=== PATIENT | female | born 1990 | race Caucasian/White ===

== ENCOUNTER → 2019-02-23 16:35 | Outpatient (CLI) | payer BC, OTHER, SELFPAY ==
[2019-02-23 11:15] VITALS: BMI 23.3
[2019-02-23 18:37] LABS: Chlamydia Trachomatis by PCR Negative (Negative); Neisserai gonorrhoeae by PCR Negative (Negative); Probe Check PASS; Sample Adequacy Control PASS; Specimen Processing Control PASS
[2019-03-02 19:27] LABS: HPV Reflexed? NOT INDICATED
== END ==
PROVIDERS: Obstetrics & Gynecology; Referring Provider Nurse Practitioner Women's Health; Visit Provider Nurse Practitioner Women's Health
DX: Z12.4 Encounter for screening for malignant neoplasm of cervix (principal); Z34.90 Encounter for supervision of normal pregnancy, unspecified, unspecified trimester
CPT/HCPCS: 87086; 87491; 87591; 88175; G0145

== ENCOUNTER → 2019-03-24 10:40 | Outpatient (CLI) | payer BC, OTHER, SELFPAY ==
[2019-03-24 10:24] VITALS: BMI 23.3
[2019-03-24 11:47] LABS: Absolute Lymphocyte Count 1.06 X10^3/uL (0.83-4.51); Basophil# 0.02 X10^3/uL; Basophil% 0.4 % (0-1); Eosinophil# 0.03 X10^3/uL; Eosinophils% 0.7 % (0-5); Hematocrit 38.8 % (37-47); Hemoglobin 13.1 g/dL (12.0-15.0); Lymphocyte # 1.06 X10^3/ul (4.0); Lymphocyte % 23.4 % (19-41); Mean Corp Hgb Conc 33.8 g/dL (32-36); Mean Corpuscular Hgb 29.4 pg (27.0-32.0); Mean Corpuscular Volume 87.2 fL (81-99); Mean Platelet Vol. 10.7 fl (6.2-12.0); Monocyte# 0.39 X10^3/uL; Monocyte% 8.6 % (0-10); NRBC Flagged by Analyzer 0 % (0-5); Neutrophil # 3.02 X10^3/uL (2.7-7.7); Neutrophil % 66.7 % (47-70); Platelet Count 204 K/mm3 (150-450); RBC Distribution Width CV 12.5 % (11.6-14.6); RBC Distribution Width SD 39.6 fl (35.1-43.9); Red Blood Count 4.45 M/mm3 (4.2-5.4); White Blood Count 4.5 K/mm3 (4.4-11.0)
[2019-03-24 12:49] LABS: HIV - WCH Non-Reactive (Nonreactive); Hepatitis B Surface Antigen Non-Reactive (Nonreactive); Rubella IgG 104.6 IU/mL
[2019-03-31 01:53] LABS: Rapid Plasmin Reagin (RPR) NONREACTIVE (NONREACTIVE)
== END ==
PROVIDERS: Obstetrics & Gynecology; Referring Provider Nurse Practitioner Women's Health; Visit Provider Nurse Practitioner Women's Health
DX: Z34.90 Encounter for supervision of normal pregnancy, unspecified, unspecified trimester (principal)
CPT/HCPCS: 36415; 85025; 86592; 86703; 86762; 86850; 86900; 86901; 87340

== ENCOUNTER → 2019-07-07 12:01 | Outpatient (CLI) | payer BC, OTHER, SELFPAY ==
[2019-07-07 11:55] VITALS: BMI 23.3
[2019-07-07 13:31] LABS: Absolute Lymphocyte Count 0.78 X10^3/uL (0.83-4.51); Absolute Neutrophil Count 4.7 X10^3/uL (2.0-7.7); Basophil# 0.02 X10^3/uL; Basophil% 0.3 % (0-1); Eosinophil# 0.04 X10^3/uL; Eosinophils% 0.7 % (0-5); Hematocrit 36.7 % (37-47); Hemoglobin 12.2 g/dL (12.0-15.0); Lymphocyte # 0.78 X10^3/ul (4.0); Lymphocyte % 13.2 % (19-41); Mean Corp Hgb Conc 33.2 g/dL (32-36); Mean Corpuscular Hgb 29.7 pg (27.0-32.0); Mean Corpuscular Volume 89.3 fL (81-99); Monocyte# 0.33 X10^3/uL; Monocyte% 5.6 % (0-10); NRBC Flagged by Analyzer 0 % (0-5); Neutrophil % 79.9 % (47-70); Platelet Count 170 K/mm3 (150-450); RBC Distribution Width CV 12.7 % (11.6-14.6); Red Blood Count 4.11 M/mm3 (4.2-5.4); White Blood Count 5.9 K/mm3 (4.4-11.0)
[2019-07-07 13:41] LABS: Glucose Challenge Gest 1H 50g 168 mg/dL (70-140)
== END ==
PROVIDERS: Referring Provider Nurse Practitioner Women's Health; Visit Provider Nurse Practitioner Women's Health
DX: Z34.02 Encounter for supervision of normal first pregnancy, second trimester (principal)
CPT/HCPCS: 36415; 82950; 85025

== ENCOUNTER → 2019-07-13 09:43 | Outpatient (CLI) | payer BC, OTHER, SELFPAY ==
[2019-07-07 11:55] VITALS: BMI 23.3
[2019-07-13 11:03] LABS: Glucose GTT-Gestation. Fasting 75 mg/dL (<105)
[2019-07-13 12:18] LABS: Glucose GTT-Gestational 1 Hr 192 mg/dL (<190)
[2019-07-13 13:06] LABS: Glucose GTT-Gestational 2 Hr 178 mg/dL (<165)
[2019-07-13 13:44] LABS: Glucose GTT-Gestational 3 Hr 104 L (<145)
== END ==
PROVIDERS: Referring Provider Obstetrics & Gynecology; Visit Provider Obstetrics & Gynecology
DX: O99.810 Abnormal glucose complicating pregnancy (principal); Z3A.00 Weeks of gestation of pregnancy not specified
CPT/HCPCS: 36415; 82951; 82952

== ENCOUNTER 2019-08-01 10:00 | Outpatient (RCR) | payer BC, OTHER, SELFPAY ==
[2019-07-07 11:55] VITALS: BMI 23.3
[2019-07-21 10:52] VITALS: BMI 23.3
== END 2019-08-02 23:59 ==
LOC: NS 10:00
PROVIDERS: Visit Provider Obstetrics & Gynecology
DX: Z71.3 Dietary counseling and surveillance (principal); O24.419 Gestational diabetes mellitus in pregnancy, unspecified control
CPT/HCPCS: 97802; G0108

== ENCOUNTER 2019-08-15 11:00 | Outpatient (RCR) | payer BC, OTHER, SELFPAY ==
[2019-07-21 10:52] VITALS: BMI 23.3
[2019-08-04 10:51] VITALS: BMI 26.9
== END 2019-08-15 23:59 | disposition home or self-care (01) ==
LOC: DC 11:00
PROVIDERS: Visit Provider Obstetrics & Gynecology
DX: Z71.3 Dietary counseling and surveillance (principal); O24.419 Gestational diabetes mellitus in pregnancy, unspecified control; Z3A.00 Weeks of gestation of pregnancy not specified

== ENCOUNTER → 2019-09-01 08:54 | Outpatient (CLI) | payer BC, OTHER, SELFPAY ==
[2019-08-04 10:51] VITALS: BMI 26.9
--- NOTE | 2019-09-01 08:56 | US_ITS ---
STUDY: SECOND AND THIRD TRIMESTER OBSTETRICAL ULTRASOUND REASON FOR EXAM: Female, 29 years old Growth -gestational DM LMP: December 20, 2018. TECHNIQUE: Transabdominal TECHNICAL QUALITY: Adequate. PRIOR ULTRASOUND: None. FINDINGS: There is a single intrauterine fetus. The fetus is in a cephalic presentation. There is demonstrated cardiac activity with a heart rate of 124 bpm. There is a normal amniotic fluid volume. The largest amniotic fluid pocket measures 4.3 cm. The amniotic fluid index (ARABELLA) is 9.8 cm. The placenta is anterior in location and is not low lying. There are Grade 2 placental changes. The cervix was not visualized due to the head positioning. The bilateral adnexal regions are normal. BIOMETRY: BPD: 8.2 cm: 33 weeks, 0 days HC: 30.1 cm: 33 weeks, 2 days AC: 32 cm: 35 weeks, 6 days FL: 6.7 centimeters: 34 weeks, 2 days CI: 76% FL/BPD: 81% FL/HC: FL/AC: 21% HC/AC: 0.94 age by current US: 34 weeks, 1 days. MASSIEL by current US: October 12, 2019. Estimated weight: 2556 grams, +/- 378 grams, 16 %. Age by LMP: 36 weeks, 3 days. MASSIEL by LMP: September 26, 2019. US/OB Limited With Biometrics IMPRESSION: Single live intrauterine gestation with a mean gestational age of 36 weeks and 3 days. The measurements obtained today fall within the lower limits of normal. Electronically Signed: Pete Reynolds, at 10:33 EDT , Service support ,
== END ==
PROVIDERS: Referring Provider Obstetrics & Gynecology; Visit Provider Obstetrics & Gynecology
DX: Z34.90 Encounter for supervision of normal pregnancy, unspecified, unspecified trimester (principal)
CPT/HCPCS: 76816

== ENCOUNTER → 2019-09-02 16:26 | Outpatient (CLI) | payer BC, OTHER, SELFPAY ==
[2019-09-02 11:53] VITALS: BMI 27.0
== END ==
PROVIDERS: Referring Provider Obstetrics & Gynecology; Visit Provider Obstetrics & Gynecology
DX: Z3A.36 36 weeks gestation of pregnancy (principal)
CPT/HCPCS: 87077; 87081; 87186

== ENCOUNTER 2019-09-16 11:50 | Inpatient (IN) | payer BC, OTHER, SELFPAY ==
[2019-09-16] VITALS (41 sets, daily range): BP systolic 102–141; BP diastolic 51–83; PULSE 56–131; TEMP 36.7–37.1; O2SAT 87–100; BMI 27.0
--- NOTE | 2019-09-16 12:44 | HP.PCM_ITS ---
- Problem List (1) Oligohydramnios Status: Acute (2) Gestational diabetes mellitus (GDM) affecting Status: Acute Comment: BS well controlled with diet. plan 36 week growth US delivery by 39-40 weeks. growth and ARABELLA WNL (3) Positive GBS test Status: Acute Comment: treat in labor (4) Status: Acute Qualifiers: Comment: carrier, ntd screening declined. NIPT low risk. 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 Required: No Is patient in pain?: No Allergies No Known Allergies Allergy (Verified 09/16/19 11:16) Medications vitamin#30 30 mg iron-10 mg iron-folic acid 1 mg-omg3 capsule cap PO cap 02/23/19 [History Confirmed 09/16/19] blood-glucose meter See Rx Instructions .ROUTE .MEDSUPPLY #1 ea 07/14/19 [Rx Confirmed 09/16/19] blood sugar diagnostic See Rx Instructions .ROUTE .COMPLEX #100 strip 08/10/19 [Rx Confirmed 09/16/19] Last Menstral Period: 12/20/18 Zika: Zika virus screening: Negative : No PFSH PFSH Surgical History History of wisdom tooth extraction, class II edentulism (Acute) Family History Unknown Heart disease Grandfather Cancer lung Social History (Updated 09/16/19 @ 11:[address] Zuleyma Mcdowell MD) Smoking Status: Never smoker alcohol intake: never substance use type: does not use caffeine: Yes what type of physical activity do you participate in: walking seatbelt use: always do you feel safe at home: Yes additional social history: [place] [employer] at [employer] Pregancy History 1 Elective abortions Hx Para Spontaneous abortions Hx # Term Pregnancies Ectopic pregnancies Hx # Pregnancies Multiple births # of living children HPI est ob 38w: Details: CAESAR FERRER is a 29 year old who presents for routine OB visit. She is a 1/0 at 38 weeks and 4 days and was noted to have a low fundal height today and therefore fluid level was checked and her ARABELLA was 5 cm. She has had well-controlled diabetes with diet alone during the but otherwise has not had any complications until today. OB Visit AMSSIEL Calculator Estimated Delivery Date Method Current WG Current Estimate 09/26/19 LMP (Uncertain) 38w 4d Expected Delivery Route/Plan Labor Preferences- labor support person: Pac[employer] pain management options preferred: epidural cut cord/dad catch: cord : yes PP control planned: condoms discussed possible routes of delivery and associated risks: [] special requests: [] Specific Issue/Plans flu vaccine: given tdap vaccine: tdap given rhogam: na LARC form signed: yes movement and labor precautions reviewed. Problem list reviewed and updated with the most current plan of care details and appropriate orders placed. Relevant counseling for the gestational age provided. Continue routine care and follow up unless otherwise noted in visit notes/problem list details Initial Weight: Not Recorded Date EGA Weight BP Urine Prot Glucose FHR FuHt Pres Dilation Effaced St Visit Note 03/24/19 13w 3d 111 lb 98/60 Negative Negative 154 0 Light spotting 3 days ago-none since. Cervix closed, no blood in vault. FHT found easily. 04/20/19 17w 2d 115 lb 6 oz 118/70 Negative Negative 148 NO VB, LOF. NO FM yet. Anatomy US scheduled. Declines AFP. Flu shot today 05/20/19 21w 4d 120 lb 124/88 Negative Negative 145 SM- no vb lof good fm no regular ctx 06/17/19 25w 4d 123 lb 130/70 140 SM- no vb lof good fm no regular ctx 07/07/19 28w 3d 127 lb 6 oz 126/70 Negative Negative 148 28 MH-Good FM. NO VB, LOF. 28 wk labs. Tdap next visit 07/21/19 30w 3d 126 lb 6 oz 110/58 Negative Negative 145 30 SM- no vb lof good fm no regular ctx 08/04/19 32w 3d 124 lb 6 oz 112/72 Negative Negative 130 32 SM- no vb lof good fm no regular ctx. bs well controlled. 09/02/19 36w 4d 125 lb 118/82 118/82 130 35 Cephalic 1.5 60 -2 SM - no vb lof good fm no regular ctx bs well controlled 09/09/19 37w 4d 126 lb 116/80 Negative Negative 115 35 Cephalic 1.5 60 -1 SM- no vb lof good fm no regular ctx SM- no vb lof good fm no regular ctx BS well controlled 09/16/19 38w 4d 125 lb 116/72 Negative Negative 120 34 Cephalic SM- no vb lof good fm no regular ctx Notes Visit Date: 09/16/19 ??No visit notes to display Visit Date: 09/09/19 ??No visit notes to display Visit Date: 09/02/19 ??No visit notes to display Visit Date: 08/04/19 ??No visit notes to display Visit Date: 07/21/19 ??No visit notes to display Visit Date: 07/07/19 ??No visit notes to display Visit Date: 06/17/19 ??No visit notes to display Visit Date: 05/20/19 ??No visit notes to display Visit Date: 04/20/19 ??No visit notes to display Visit Date: 03/24/19 ??Light spotting 3 days ago-none since. Cervix closed, no blood in vault. FHT found easily. ??Paula Dubon NP-C on 03/24/19 ACOG First Trimester First Trimester: Desire for , Alcohol, Tobacco Cessation, Illicit/Recreational Drug/Substance Use, Intimate Partner Violence, Barriers to care, Unstable Housing, Communication Barriers, Environmental/Work Hazards, Anticipated Course of Care, Toxoplasmosis Precations, Use of Any medications, Sexual activity, Exercise, Dental Care, Sauna/Hot tub use, Seat Belt use, Childbirth classes/Hospital facilities, , Travel, Indications for US and Screening for Aneuploidy Second Trimester Second Trimester: Signs and Symptoms of Labor, Selecting a care provider, Reproductive Life Planning, Care Planning, Tobacco Cessation, Depression/Anxiety and Intimate Partner Violence Third Trimester Third Trimester: Pain Management Plans, Labor support person(s), Immediate Larc, Movement Monitoring and Infant Feeding Yes ; discussed Trial of Labor after Counseling or discussed Circumcision preference Diagnostics Diagnostics Diagnostics Gest Glucose Tolerance MG/DL 07/13/19 Glucose 1 Hr 50 gm 168 mg/dL (70-140) H 07/07/19 Hgb 12.2 g/dL (12.0-15.0) 07/07/19 Hct 36.7 % (37-47) L 07/07/19 Details: HIV: Urine Culture: Sequential Screen: NIPT Screen: ROS Const Reports system reviewed and no additional complaints, except as docu Card Reports system reviewed and no additional complaints, except as docu Resp Reports system reviewed and no additional complaints, except as docu GI Reports system reviewed and no additional complaints, except as docu, Reports nausea Reports system reviewed and no additional complaints, except as docu Musc Reports system reviewed and no additional complaints, except as docu Exam Const General: cooperative, healthy appearing, comfortable, anxious HENMT Head: normal to inspection Nose: external nose normal Face and sinus: normal facial exam Neck Neck: normal visual inspection, full ROM, no lymphadenopathy Thyroid: thyroid normal Chest Chest palpation & inspection: normal inspection of the chest Resp Effort & Inspection: normal respiratory effort GI Inspection: normal to inspection Palpation: soft, other (gravid uterus) Other: infant vertex and appropriate size for gestational age Other: Cervical Exam: Extrem General: pedal edema Results POC Urinalysis 2 Dip (Clinic) Office Urine Glucose Negative Last Edit by Georgia Falk on 09/16/19 11:2 0 Office Urine Protein Negative Last Edit by Georgia Falk on 09/16/19 11:2 0 Assessment & Plan Problems 1. Positive GBS test B95.1 2. Gestational diabetes mellitus (GDM) affecting O24.419 3. 38 weeks gestation of Z3A.38 4. Encounter for supervision of normal first in second trimester Z34.02 29-year-old G1, P0 at 38 weeks 4 days with GDM A1 and oligohydramnios ARABELLA 5 cm today recommend induction of labor Patient presents IOL, plan management for , pitocin/AROM after Santoyo bulb. Pain management: [plans epidural]. GBS positive plan penicillin. Management of any complications: Diabetes plan routine testing throughout labor progress I have reviewed the [facility] and made any clinically relevant updates. Orders Orders: POC Urinalysis 2 Dip (Clinic) Today OB Limited With Biometrics Today O26.849 Coding Level of Care Code OB Routine Diagnoses Positive GBS test B95.1 Gestational diabetes mellitus (GDM) affecting O24.419 38 weeks gestation of Z3A.38 ??Weeks of gestation: 38 weeks Encounter for supervision of normal first in second trimester Z34.02 ??Normal : normal first ??Trimester: second trimester
[2019-09-16] MEDS: Lactated Ringers 1,000 ML 50 ML IV (13:14)
[2019-09-16 13:22] LABS: Absolute Neutrophil Count 3.5 X10^3/uL (2.0-7.7); Basophil# 0.01 X10^3/uL; Basophil% 0.2 % (0-1); Eosinophil# 0.01 X10^3/uL; Eosinophils% 0.2 % (0-5); Hematocrit 37.5 % (37-47); Hemoglobin 12.9 g/dL (12.0-15.0); Lymphocyte % 16.8 % (19-41); Mean Corp Hgb Conc 34.4 g/dL (32-36); Mean Corpuscular Hgb 29.9 pg (27.0-32.0); Mean Platelet Vol. 11.3 fl (6.2-12.0); Monocyte# 0.43 X10^3/uL; NRBC Flagged by Analyzer 0 % (0-5); Neutrophil # 3.51 X10^3/uL (2.7-7.7); Neutrophil % 73.6 % (47-70); Platelet Count 162 K/mm3 (150-450); RBC Distribution Width CV 12.9 % (11.6-14.6); RBC Distribution Width SD 40.3 fl (35.1-43.9); Red Blood Count 4.31 M/mm3 (4.2-5.4); White Blood Count 4.8 K/mm3 (4.4-11.0)
[2019-09-16] MEDS: 0.9% Normal Saline Single 100 ML IV.SOLN. IY (14:01)
[2019-09-16 14:11] LABS: Bedside Glucose 74 mg/dL (70-110)
[2019-09-16] MEDS: Oxytocin 30 units/NS 500 ml 30 UNITS/500 ML IV.SOLN IV (14:16)
[2019-09-16 19:26] LABS: Bedside Glucose 82 mg/dL (70-110)
--- NOTE | 2019-09-16 19:45 | NURSING ---
Pitocin was running on pump at 10 mL/hr upon arrival to this RN's shift. Increased Pitocin to 12 mL/hr at 1942.
[2019-09-16] MEDS: Lactated Ringers 500 ML 999 ML IV ×2 (20:31→23:21)
[2019-09-16] MEDS: fentaNYL-bupivacaine (epidural) 100 ML BAG EPIDURAL (21:41)
[2019-09-16 22:55] LABS: Bedside Glucose 83 mg/dL (70-110)
[2019-09-16] MEDS: Lactated Ringers 1,000 ML 200 ML IV (22:56)
[2019-09-17] VITALS (28 sets, daily range): BP systolic 92–130; BP diastolic 56–74; PULSE 52–149; RESP 16–18; TEMP 36.3–37.4; O2SAT 81–99
[2019-09-17 01:56] LABS: Bedside Glucose 84 mg/dL (70-110)
[2019-09-17] MEDS: Mag Hydrox/Al Hydrox/Simeth 30 ML UDC PO (02:35)
--- NOTE | 2019-09-17 03:01 | PCM.PN.BLA ---
Progress Note Patient comfortable with epidural. heart tone 120 moderate variability reactive early decelerations isolated variable. Overall category 1 tracing. Contractions every 2 to 4 minutes. IUPC placed. Continue Pitocin per protocol. 6 cm 90% and 0 station. STROKE Vital Signs/Narrative: Vital Signs Temp Pulse BP Pulse Ox 09/17/19 02:24 61 108/62 09/17/19 02:22 97.7 F L 99 09/17/19 01:42 98.0 F 63 113/60 99 09/17/19 00:33 98.2 F 64 103/59 L 97 09/16/19 23:53 68 102/51 L 97 09/16/19 23:52 98.3 F 09/16/19 23:13 61 135/58 H 09/16/19 23:12 98.0 F 09/16/19 23:07 59 L 98 09/16/19 23:02 76 98
[2019-09-17] MEDS: Lactated Ringers 1,000 ML 200 ML IV (03:27)
[2019-09-17 04:06] LABS: Bedside Glucose 82 mg/dL (70-110)
[2019-09-17] MEDS: fentaNYL-bupivacaine (epidural) 100 ML BAG EPIDURAL (04:09)
[2019-09-17 04:15] LABS: Bedside Glucose 80 mg/dL (70-110)
[2019-09-17] MEDS: Ondansetron 4 MG/2 ML Vial IV (04:33)
[2019-09-17 05:30] LABS: Bedside Glucose 74 mg/dL (70-110)
[2019-09-17 06:31] LABS: Bedside Glucose 71 mg/dL (70-110)
--- NOTE | 2019-09-17 07:47 | PCM.OPRPT ---
Problem List (1) Oligohydramnios Status: Acute (2) Gestational diabetes mellitus (GDM) affecting Status: Acute Comment: BS well controlled with diet. plan 36 week growth US delivery by 39-40 weeks. growth and ARABELLA WNL (3) Positive GBS test Status: Acute Comment: treat in labor (4) Status: Acute Qualifiers: Comment: carrier, ntd screening declined. NIPT low risk. anatomy normal (5) Supervision of normal Status: Acute Qualifiers: Comment: PRR MASSIEL 09/26/19, girl Charline Donney Vaginal Delivery Maternal Presentation: Medically Indicated Induction 38 week IOL Method of Induction: Pitocin, Snatoyo Bulb Amniotic Membrane Rupture Type: Spontaneous Amniotic Fluid Description: Clear Date of Procedure: 09/17/19 Pre-Operative Diagnosis: iol oligo gdma1 Post-Operative Diagnosis: same Surgery/ Procedure Performed: Spontaneous Vaginal Delivery Type of Anesthesia: Epidural Description of Procedure: Patient began pushing and delivered the head in the CLYDE presentation. The head was delivered atraumatically. The anterior and posterior shoulders delivered without complication followed by the rest of the and the infant was placed on the maternal abdomen. Delayed cord clamping was employed for approximately 60 seconds. Cord was clamped and cut and gentle traction was applied to the cord and the placenta delivered spontaneously immediately following it was noted to be intact with three-vessel cord. The perineum and vagina were inspected and noted to have a small first-degree perineal laceration that was repaired in the usual fashion with 3-0 Vicryl Rapide. EBL was 100 cc. Patient and tolerated delivery well. Presentation: CLYDE Placental Delivery Description: Spontaneous Placenta Disposition: [facility] Cord Vessel Description: 3 Vessels Cord Entanglement: None Estimated Blood Loss: 100 A gender: Female Episiotomy Description: None Laceration: Perineal Extension/lac, 1st degree Medications given after delivery: IV Pitocin Complications: None Multi Select Codes - Urinary/Genital Urinary/Genital CPT Codes: 88148 Vaginal Delivery [facility]
[2019-09-17] MEDS: Oxytocin 30 units/NS 500 ml 30 UNITS/500 ML IV.SOLN 334 UNITS IV (08:29)
[2019-09-17 10:10] LABS: Bedside Glucose 72 mg/dL (70-110)
[2019-09-17 10:10] LABS: Bedside Glucose 81 mg/dL (70-110)
[2019-09-17] MEDS: 0.9% Saline Lock 10 ML Syringe IV (11:00)
[2019-09-17] MEDS: Naproxen 250 MG Tablet 500 MG PO (15:55)
[2019-09-18] VITALS: BP 117/57; PULSE 70; RESP 16; TEMP 36.7
[2019-09-18] MEDS: Naproxen 250 MG Tablet 500 MG PO (00:01)
[2019-09-18 03:40] VITALS: BP 107/57; PULSE 59; RESP 16; TEMP 36.6
--- NOTE | 2019-09-18 07:37 | DCINST_ITS ---
Discharge Diet: No Restrictions Discharge Activity: Return to Normal Activity, May not drive while taking narcotic pain medications., May Shower May resume sexual activity in: 4-6 weeks Call your doctor if your incision/area has: Continuous Slow Oozing, Sudden Increased Bleeding, Increased Pain/ Swelling, Increased Redness, Foul Smelling Discharge Additional Instructions: If you experience any of the following, contact your healthcare provider. * Bleeding that soaks a pad every hour for 2 hours * Fever 100.4 or higher * Unrelieved incision or abdominal pain * Swelling, redness, discharge or bleeding from your incision or episiotomy site * Your incision begins to separate * Problems urinating (including inability to urinate or burning while urinating). * Visual changes * Severe headache * Flu-like symptoms * Pain or redness in one of both of your breasts * Pain, warmth, tenderness or swelling in your legs, especially the calf area * Frequent nausea and vomiting * Symptoms of depression or anxiety If you experience any of the following, call 911 or go to the nearest Emergency Room. * Chest pain * Problems breathing * Seizure activity * Partial or complete paralysis of a body part, slurred speech, weakness or drooping of the face, or a sudden inability to walk or hold your balance Allergies/Adverse Reactions: Allergies No Known Allergies Allergy (Verified 09/16/19 11:16) Medications to take at Discharge vitamin#30 30 mg iron-10 mg iron-folic acid 1 mg-omg3 capsule 1 cap PO DAILY cap 02/23/19 blood-glucose meter See Rx Instructions .ROUTE .MEDSUPPLY #1 ea 07/14/19 blood sugar diagnostic See Rx Instructions .ROUTE .COMPLEX #100 strip 08/10/19 Please Follow Up With: Zuleyma Mcdowell MD - [phone] When: Call to make an appointment with your doctor in 6 weeks. If you had elevated Blood pressure or 4th degree laceration you will need to be seen in 2 weeks. Test Results: Test results from this visit will be discussed in further detail at your follow- up appointment, if applicable.
--- NOTE | 2019-09-18 07:37 | PCM.PN.OB ---
Patient Problems: Active and Suspected Problems (Last Reviewed 09/16/19 @ 11:16 by Georgia Falk) Oligohydramnios (Acute) Subjective: doing well no complaints pain controlled no CP SOB N V ambulating well tolerating po lochia moderate, going well - Physical Exam Vitals/I&O's: Vital Signs Temp Pulse Resp BP Pulse Ox 97.8 F 59 L 16 107/57 L 97 09/18/19 03:40 09/18/19 03:40 09/18/19 03:40 09/18/19 03:40 09/17/19 08:46 Oxygen Delivery Method Room Air Weight: 125 lb Body Mass Index (BMI) 27.0 Intake and Output for Last 24 Hours 09/16/19 09/17/19 09/18/19 23:59 23:59 23:59 Intake Total 2410.89 / 2410.89 2618.30 / 2618.30 Output Total 200 / 200 400 / 400 Balance 2210.89 / 2210.89 2218.30 / 2218.30 Laboratory Results 09/17/19 07:23: POC Glucose 72 09/17/19 08:57: POC Glucose 81 Current Medications Acetaminophen (Tylenol) 1,000 mg PO Q8H PRN PRN PRN Reason: Pain Score 1-3/10 Bisacodyl (Dulcolax) 10 mg RECTAL UD PRN PRN Reason: If no BM Dibucaine (Dibucaine) 1 applic TOPICAL TID PRN PRN; Protocol PRN Reason: Discomfort Hydrocortisone (Hytone) 1 applic TOPICAL TID PRN PRN; Protocol PRN Reason: Discomfort Methylergonovine Maleate (Methergine) 0.2 mg IM X1 PRN PRN Reason: Excess bleeding/uterine atony Naproxen (Naprosyn) 500 mg PO Q8H PRN PRN PRN Reason: Pain Score 1-3/10 Last Admin: 09/18/19 00:01 Dose: 500 mg Documented by: Ondansetron HCl (Zofran) 4 mg IV Q4H PRN PRN PRN Reason: Nausea Oxycodone HCl (Oxyir) 5 - 10 mg PO Q4H PRN PRN PRN Reason: Pain Score 4-10/10 Senna/Docusate Sodium (Senokot-S, Myrtle-Colace) 1 - 2 tablet PO DAILY PRN PRN PRN Reason: Constipation Simethicone (Mylicon) 80 mg PO PCHS PRN PRN Reason: Indigestion/Stomach pain Sodium Chloride () 5 - 15 ml IV UD PRN PRN Reason: SALINE FLUSH Last Admin: 09/17/19 11:00 Dose: 10 ml Documented by: Medical Necessity - Tobacco Use Smoking Status: Never smoker Assessment/Plan All Active Problems (Last Reviewed 09/16/19 @ 11:16 by Georgia Falk) Oligohydramnios (Acute) Positive GBS test (Acute) Gestational diabetes mellitus (GDM) affecting (Acute) (Acute) Supervision of normal (Acute) Abnormal glucose affecting (Resolved) s/p PPD # 1 1. routine post delivery care 2. breast feeding- support given 3. rh positive 4. rubella immune gdma1- check FBS today
--- NOTE | 2019-09-18 07:37 | PCM.DCVAG ---
Discharge Diet: No Restrictions Discharge Activity: Return to Normal Activity, May not drive while taking narcotic pain medications., May Shower May resume sexual activity in: 4-6 weeks Call your doctor if your incision/area has: Continuous Slow Oozing, Sudden Increased Bleeding, Increased Pain/ Swelling, Increased Redness, Foul Smelling Discharge Additional Instructions: If you experience any of the following, contact your healthcare provider. Bleeding that soaks a pad every hour for 2 hours Fever 100.4 or higher Unrelieved incision or abdominal pain Swelling, redness, discharge or bleeding from your incision or episiotomy site Your incision begins to separate Problems urinating (including inability to urinate or burning while urinating). Visual changes Severe headache Flu-like symptoms Pain or redness in one of both of your breasts Pain, warmth, tenderness or swelling in your legs, especially the calf area Frequent nausea and vomiting Symptoms of depression or anxiety If you experience any of the following, call 911 or go to the nearest Emergency Room. Chest pain Problems breathing Seizure activity Partial or complete paralysis of a body part, slurred speech, weakness or drooping of the face, or a sudden inability to walk or hold your balance Allergies/Adverse Reactions: Allergies No Known Allergies Allergy (Verified 09/16/19 11:16) Medications to take at Discharge vitamin#30 30 mg iron-10 mg iron-folic acid 1 mg-omg3 capsule 1 cap PO DAILY cap 02/23/19 blood-glucose meter See Rx Instructions .ROUTE .MEDSUPPLY #1 ea 07/14/19 blood sugar diagnostic See Rx Instructions .ROUTE .COMPLEX #100 strip 08/10/19 Please Follow Up With: Zuleyma Mcdowell MD - [phone] When: Call to make an appointment with your doctor in 6 weeks. If you had elevated Blood pressure or 4th degree laceration you will need to be seen in 2 weeks. Test Results: Test results from this visit will be discussed in further detail at your follow-up appointment, if applicable.
[2019-09-18 07:55] LABS: Bedside Glucose 87 mg/dL (70-110)
[2019-09-18 08:17] VITALS: BP 111/67; PULSE 70; RESP 18; TEMP 36.6
[2019-09-18 14:16] VITALS: BP 113/59; PULSE 80; RESP 18; TEMP 36.6
== END 2019-09-18 15:20 | disposition home or self-care (01) | DRG 806 ==
PROVIDERS: Admitting Provider Obstetrics & Gynecology; Visit Provider Obstetrics & Gynecology
DX: O24.420 Gestational diabetes mellitus in childbirth, diet controlled (principal); O41.03X0 Oligohydramnios, third trimester, not applicable or unspecified; Z37.0 Single live birth; O99.824 Streptococcus B carrier state complicating childbirth; Z3A.38 38 weeks gestation of pregnancy; O76 Abnormality in fetal heart rate and rhythm complicating labor and delivery; O70.0 First degree perineal laceration during delivery
CPT/HCPCS: 59025; 59050; 82962; 85025; 86850; 86900; 86901; 99218; J7120; A4216; G0378; J2405

== ENCOUNTER 2020-08-03 14:57 | Outpatient (RCR) | payer OTHER, SELFPAY ==
[2019-10-31 14:29] VITALS: BMI 27.0
== END 2020-10-09 23:59 ==
LOC: IMMUN 14:57
PROVIDERS: PCP Family Medicine; Visit Provider Family Medicine
DX: Z23 Encounter for immunization (principal)
CPT/HCPCS: 0001A; 0002A; 91300

== ENCOUNTER → 2021-02-07 18:04 | Outpatient (CLI) | payer OTHER, SELFPAY ==
[2021-02-07 18:27] LABS: Amphetamine Urine VISTA NEGATIVE (<1000 ng/mL); Barbiturate Urine VISTA NEGATIVE (< 200 ng/mL); Benzodiazepine Urine VISTA NEGATIVE (< 200 ng/mL); Cocaine Urine VISTA NEGATIVE (< 300 ng/mL); Ecstacy Urine VISTA NEGATIVE (< 500 ng/mL); Methadone Urine VISTA NEGATIVE (< 300 ng/mL); PCP Urine VISTA NEGATIVE (< 25 ng/mL); THC Urine VISTA NEGATIVE (< 50 ng/mL); Vista UDS pH Range 5
[2021-02-11 22:06] LABS: Chlamydia By Nucleic Acid AMP Negative (Negative)
[2021-02-12 07:56] LABS: Gonococcus By Nucleic Acid AMP Negative (Negative)
[2021-02-12 16:00] LABS: HPV APTIMA, High Risk Negative (Negative)
== END ==
PROVIDERS: PCP Family Medicine; Referring Provider Obstetrics & Gynecology; Visit Provider Obstetrics & Gynecology
DX: Z34.90 Encounter for supervision of normal pregnancy, unspecified, unspecified trimester (principal)
CPT/HCPCS: 80307; 87086; 87491; 87591; 87624; 88175; G0145

== ENCOUNTER → 2021-02-18 10:01 | Outpatient (CLI) | payer OTHER, SELFPAY ==
[2021-02-18 12:02] LABS: Absolute Lymphocyte Count 1.11 X10^3/uL (0.83-4.51); Basophil# 0.01 X10^3/uL; Basophil% 0.2 % (0-1); Eosinophil# 0.02 X10^3/uL; Eosinophils% 0.4 % (0-5); Hematocrit 36.5 % (37-47); Hemoglobin 12.4 g/dL (12.0-15.0); Lymphocyte # 1.11 X10^3/ul (0.83-4.51); Lymphocyte % 24.9 % (19-41); Mean Corpuscular Hgb 29.1 pg (27.0-32.0); Mean Corpuscular Volume 85.7 fL (81-99); Mean Platelet Vol. 11.3 fl (6.2-12.0); Monocyte# 0.32 X10^3/uL; Monocyte% 7.2 % (0-10); NRBC Flagged by Analyzer 0 % (0-5); Neutrophil # 2.99 X10^3/uL (2.7-7.7); Neutrophil % 67.1 % (47-70); Platelet Count 236 K/mm3 (150-450); RBC Distribution Width CV 12.5 % (11.6-14.6); RBC Distribution Width SD 39.2 fl (35.1-43.9); Red Blood Count 4.26 M/mm3 (4.2-5.4); White Blood Count 4.5 K/mm3 (4.4-11.0)
[2021-02-18 13:00] LABS: Glucose Challenge Gest 1H 50g 80 mg/dL (70-140)
[2021-02-18 13:13] LABS: HIV - WCH Non-Reactive (Nonreactive); Hepatitis B Surface Antigen Non-Reactive (Nonreactive); Hepatitis C Antibody Non-Reactive (Nonreactive); Rubella IgG Reactive (Nonreactive); Syphilis Antibodies Non-reactive
[2021-02-24 15:54] LABS: NATERA MAILED SPECIMEN
== END ==
PROVIDERS: PCP Family Medicine; Referring Provider Obstetrics & Gynecology; Visit Provider Obstetrics & Gynecology
DX: Z34.90 Encounter for supervision of normal pregnancy, unspecified, unspecified trimester (principal)
CPT/HCPCS: 36415; 82950; 85025; 86703; 86762; 86780; 86803; 86850; 86900; 86901; 87340

== ENCOUNTER → 2021-04-22 08:12 | Outpatient (CLI) | payer OTHER, SELFPAY ==
--- NOTE | 2021-04-22 08:15 | US_ITS ---
STUDY: SECOND AND THIRD TRIMESTER OBSTETRICAL ULTRASOUND REASON FOR EXAM: Female, 30 years old anatomy scan LMP: 12/10/2020. TECHNIQUE: Transabdominal and Transvaginal TECHNICAL QUALITY: Adequate. PRIOR ULTRASOUND: None. FINDINGS: There is a single intrauterine fetus. The fetus is in an transverse lie with the head on the maternal left side. There is demonstrated cardiac activity with a heart rate of 141 bpm. There is a normal amniotic fluid volume. The largest amniotic fluid pocket measures 3.4 cm x 3 cm. The amniotic fluid index (ARABELLA) is within normal limits. The placenta is anterior in location and is not low lying. There are Grade 1 placental changes. The cervix measures 4 cm in length. The bilateral adnexal regions are normal. BIOMETRY: BPD: 4.5 cm: 19 weeks, 4 days HC: 16.4 cm: 19 weeks, 0 days AC: 14.1 cm: 19 weeks, 3 days FL: 2.7 cm: 18 weeks, 0 days CI: 79% FL/BPD: 59% FL/HC: FL/AC: 19% HC/AC: 1.16 age by current US: 19 weeks, 0 days. MASSIEL by current US: 09/16/2021. Estimated weight: 266 grams, +/- 40 grams, 43 %. Age by LMP: 19 weeks, 0 days. MASSIEL by LMP: 09/16/2021. ANATOMY: Gender: Male Cranium: Normal lateral ventricles. Normal choroid plexus. Normal cerebellum. Normal cisterna magna. Normal face, nose and lips. Chest: Normal 4-chamber heart. Abdomen/Pelvis: Normal diaphragm. Normal stomach. Normal abdominal wall. Normal cord insertion. Normal 3 vessel cord. Mild dilatation of the right renal pelvis measuring 5 mm. Normal bladder. Spine: Normal cervical spine. Normal thoracic spine. Normal lumbar spine. Normal sacrum. Extremities: Normal bilateral upper extremities. Normal bilateral lower extremities. IMPRESSION: Single live intrauterine gestation with mean gestational age of 19 weeks. Mild dilatation of the right renal pelvis measuring 5 mm. Electronically Signed: Pete Reynolds MD at 12:39 EST , Service support , STUDY: FIRST TRIMESTER OBSTETRICAL ULTRASOUND REASON FOR EXAM: Female, 30 years old . Cervical length measurement. TECHNIQUE: Transvaginal TECHNICAL QUALITY: Adequate. PRIOR ULTRASOUND: None. FINDINGS: The cervical length measures 4 cm. US/OB Anatomy Scan IMPRESSION: The cervical length measures 4 cm. Electronically Signed: Pete Reynolds MD at 12:46 EST , Service support ,
== END ==
PROVIDERS: PCP Family Medicine; Referring Provider Obstetrics & Gynecology; Visit Provider Obstetrics & Gynecology
DX: Z34.91 Encounter for supervision of normal pregnancy, unspecified, first trimester (principal)
CPT/HCPCS: 76805; 76817

== ENCOUNTER 2021-06-24 10:13 | Outpatient (CLI) | payer BC, SELFPAY ==
[2021-06-24 11:02] LABS: Absolute Lymphocyte Count 1.03 X10^3/uL (0.83-4.51); Absolute Neutrophil Count 3.7 X10^3/uL (2.0-7.7); Basophil# 0.02 X10^3/uL; Basophil% 0.4 % (0-1); Eosinophil# 0.05 X10^3/uL; Hematocrit 36.3 % (37-47); Hemoglobin 12.3 g/dL (12.0-15.0); Lymphocyte # 1.03 X10^3/ul (0.83-4.51); Lymphocyte % 19.8 % (19-41); Mean Corp Hgb Conc 33.9 g/dL (32-36); Mean Corpuscular Volume 88.5 fL (81-99); Mean Platelet Vol. 10.9 fl (6.2-12.0); Monocyte# 0.35 X10^3/uL; Monocyte% 6.7 % (0-10); NRBC Flagged by Analyzer 0 % (0-5); Neutrophil # 3.73 X10^3/uL (2.7-7.7); Neutrophil % 71.7 % (47-70); Platelet Count 191 K/mm3 (150-450); RBC Distribution Width CV 13.2 % (11.6-14.6); White Blood Count 5.2 K/mm3 (4.4-11.0)
[2021-06-24 11:38] LABS: Glucose Challenge Gest 1H 50g 101 mg/dL (70-140)
== END 2021-06-24 23:59 | disposition home or self-care (01) ==
LOC: LAB 10:17
PROVIDERS: PCP Family Medicine; Referring Provider Obstetrics & Gynecology; Visit Provider Obstetrics & Gynecology
DX: Z34.80 Encounter for supervision of other normal pregnancy, unspecified trimester (principal)
CPT/HCPCS: 36415; 82950; 85025

== ENCOUNTER → 2021-08-22 | Outpatient (CLI) | payer BC, SELFPAY | END | disposition home or self-care (01) | LOC: LABSPEC 13:09 | PROVIDERS: PCP Family Medicine; Visit Provider Obstetrics & Gynecology | DX: Z34.93 Encounter for supervision of normal pregnancy, unspecified, third trimester (principal) | CPT/HCPCS: 87081 ==

== ENCOUNTER → 2021-09-02 | Outpatient (CLI) | payer BC, SELFPAY ==
--- NOTE | 2021-09-02 13:50 | US_ITS ---
STUDY: SECOND AND THIRD TRIMESTER OBSTETRICAL ULTRASOUND - LIMITED REASON FOR EXAM: Female, 31 years old. growth PRIOR ULTRASOUND: Apr 22 2021 8:28am TECHNIQUE: Transabdominal TECHNICAL QUALITY: Adequate. FINDINGS: There is a single intrauterine fetus. The fetus is in a cephalic presentation. There is demonstrated cardiac activity with a heart rate of 124 bpm. There is a normal amniotic fluid volume. The largest amniotic fluid pocket measures 8.3 cm. The amniotic fluid index (ARABELLA) is 15.1 cm. The placenta is anterior in location and is not low lying. There are Grade 3 placental changes. The cervix is obscured by overlying bowel gas and cannot be identified. . BIOMETRY: BPD: 88 mm: 35 weeks, 3 days HC: 328 mm: 37 weeks, 1 days AC: 354 mm: 39 weeks, 2 days FL: 68 mm: 34 weeks, 5 days CI: 77 FL/AC: 19 FL/BPD: 77 HC/AC: .93 age by current US: 37 weeks, 1 days. MASSIEL by current US: 5.22.22. Estimated weight: 3270 grams, +/- 490 grams, 53 %. age by prior US: 38 weeks, 0 days. MASSIEL by prior US: 5.16.22. Age by LMP: 38 weeks, 0 days. MASSIEL by LMP: 5.16.22. US/OB Limited With Biometrics IMPRESSION: There is a single live intrauterine with a heart rate of 124 bpm. age by current US: 37 weeks, 1 days. MASSIEL by current US: 5.22.22. Estimated weight: 3270 grams, +/- 490 grams, 53 %. Electronically Signed: Wilmer Schmitt MD at 18:17 EDT ,
== END | disposition home or self-care (01) ==
PROVIDERS: PCP Family Medicine; Referring Provider Obstetrics & Gynecology; Visit Provider Obstetrics & Gynecology
DX: O09.299 Supervision of pregnancy with other poor reproductive or obstetric history, unspecified trimester (principal); Z3A.00 Weeks of gestation of pregnancy not specified
CPT/HCPCS: 76816

== ENCOUNTER 2021-09-19 01:50 | Inpatient (IN) | payer BC, SELFPAY ==
[2021-09-19] VITALS (60 sets, daily range): BP systolic 95–134; BP diastolic 48–78; PULSE 58–98; RESP 16; TEMP 36.7–37.6; O2SAT 92–100; BMI 29.7
[2021-09-19 01:46] LABS: ROM Internal Control Test YES-OK TO RESULT pt. (Internal QC)
[2021-09-19 01:47] LABS: ROM Patient Test POSITIVE (Negative)
[2021-09-19] MEDS: Lactated Ringers 1,000 ML 50 ML IV (02:25)
[2021-09-19 02:33] LABS: Absolute Lymphocyte Count 1.18 X10^3/uL (0.83-4.51); Absolute Neutrophil Count 3.7 X10^3/uL (2.0-7.7); Basophil# 0.01 X10^3/uL; Basophil% 0.2 % (0-1); Eosinophil# 0.03 X10^3/uL; Eosinophils% 0.5 % (0-5); Hematocrit 34.7 % (37-47); Hemoglobin 11.8 g/dL (12.0-15.0); Lymphocyte # 1.18 X10^3/ul (0.83-4.51); Lymphocyte % 21.4 % (19-41); Mean Corpuscular Hgb 29.3 pg (27.0-32.0); Mean Corpuscular Volume 86.1 fL (81-99); Mean Platelet Vol. 11.8 fl (6.2-12.0); Monocyte# 0.52 X10^3/uL; Monocyte% 9.4 % (0-10); NRBC Flagged by Analyzer 0 % (0-5); Neutrophil # 3.74 X10^3/uL (2.7-7.7); Platelet Count 155 K/mm3 (150-450); RBC Distribution Width SD 40.4 fl (35.1-43.9); Red Blood Count 4.03 M/mm3 (4.2-5.4); White Blood Count 5.5 K/mm3 (4.4-11.0)
[2021-09-19] MEDS: Lactated Ringers 500 ML 999 ML IV ×3 (03:02→05:49)
[2021-09-19] MEDS: fentaNYL-bupivacaine (epidural) 100 ML BAG EPIDURAL ×2 (05:05→11:14)
[2021-09-19] MEDS: Oxytocin 30 units/NS 500 ml 30 UNITS/500 ML IV.SOLN IV (07:30)
--- NOTE | 2021-09-19 07:50 | HP.PCM.OB_ITS ---
HPI - General General Date of Admission: 09/19/21 HPI Narrative CAESAR FERRER, is a 31 y/o @ 40 weekws 3 days who presents to L&D for rupture of membranes and painful contractions. Maternal Data Information MASSIEL Calculator Estimated Delivery Date Method Current WG Current Estimate 09/16/21 LMP (Certain) 40w 3d PFSH PFS Medical History (Updated 09/19/21 @ 01:52 by Deja Bauer) COVID-19 vaccine series completed Gestational diabetes Medical History no medical history Home Medications multivitamin no.47-iron fum 27 mg-folate no.1 1 mg-dha 300 mg capsule 1 cap PO DAILY 01/25/21 [History Last Taken 09/18/21] Allergy/AdvReac Type Severity Reaction Status Date / Time No Known Allergies Allergy Verified 09/12/21 10:38 Family History Unknown Heart disease Grandfather Cancer lung Surgical History History of wisdom tooth extraction, class II edentulism Social History Smoking Status: Never smoker alcohol intake: never substance use type: does not use caffeine: Yes what type of physical activity do you participate in: walking seatbelt use: always do you feel safe at home: Yes additional social history: 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 Date Name GA/Weeks Outcome Route Bth Weight Infant Gen Labor Lgth Anesthesia Del Locatn Provider FOB 09/17/19 Charline 38 live - full term 5lbs Female epidu ral [facility] TRAM Delivery Date: 09/17/19 IoL oligo, GDMA1, 1st degree laceration Renu Webber Visit Details Expected Delivery Route/Plan Labor Preferences- CB/BF classes: no labor support person: Paco labor intervention preferences: [] pain management options preferred: epidural cut cord/dad catch: cord : yes PP control planned: considering BS discussed possible routes of delivery and associated risks: [] special requests: [] Plans Covid status: Jotky Flu vaccine: considering Tdap vaccine: given Rhogam: na LARC form signed: yes movement and labor precautions reviewed. Problem list reviewed and updated with the most current plan of care details and appropriate orders placed. Relevant counseling for the gestational age provided. Continue routine care and follow up unless otherwise noted in visit notes/problem list details OB Flowsheet Initial Weight: 108 lb Date -?-?-?-?-?-?-?-?-?-?-?-?- EGA Weight BP Urine Prot -?-?-?-?-?-?-?-?-?-?-?-?- Glucose FHR FuHt Pres Dilation -?-?-?-?-?-?-?-?-?-?-?-?- Effaced St Visit Note 02/07/21 -?-?-?-?-?-?-?-?-?-?-?-?- 8w 3d 108 lb (+0 oz) 110/60 -?-?-?-?-?-?-?-?-?-?-?-?- 160 -?-?-?-?-?-?-?-?-?-?-?-?- SM- CRL cons wit h LMP SM- CRL 2 cm cons with LMP 03/08/21 -?-?-?-?-?-?-?-?-?-?-?-?- 12w 4d 112 lb (+4 lb) 112/80 Negative -?-?-?-?-?-?-?-?-?-?-?-?- Negative 140 -?-?-?-?-?-?-?-?-?-?-?-?- SM- no vb crampi ng 04/04/21 -?-?-?-?-?-?-?-?-?-?-?-?- 16w 3d 115 lb (+7 lb) 126/70 Negative -?-?--?-?-?-?-?-?-?-?-?-?- Negative 151 -?-?-?-?-?-?-?-?-?-?-?-?- MH-No VB, lof. F jose vaccine today. anatomy US 04/2205/06/21 -?-?-?-?-?-?-?-?-?-?-?-?- 21w 0d 119 lb (+11 lb) 112/72 Negative -?-?-?-?-?-?-?-?-?-?-?-?- Negative 150 -?-?-?-?-?-?-?-?-?-?-?-?- Sm- no vb lof go od fm no reuglar ctx plan MF consult for pyelectasis 06/05/21 -?-?-?-?-?-?-?-?-?-?-?-?- 25w 2d 125 lb 4 oz (+17 lb 4 oz) 128/72 Negative -?-?-?-?-?-?-?-?-?-?-?-?- Negative 135 -?-?-?-?-?-?-?-?-?-?-?-?- JV- no lof, vagi nal bleeding, or dec fm next scan due 30 weeks with mfm 06/26/21 -?-?-?-?-?-?-?-?-?-?-?-?- 28w 2d 128 lb (+20 lb) 124/72 Negative -?-?-?-?-?-?-?-?-?-?-?-?- Negative 153 27 Transverse -?--?-?-?-?-?-?-?-?-?-?-?- MH-No VB, LOF. R eviewed normal 28 wk labs. 36wk growth US is scheduled. Tdap and larc done 07/12/21 -?-?-?-?-?-?-?-?-?-?-?-?- 30w 4d 131 lb 2 oz (+23 lb 2 oz) 120/80 Negative -?-?-?-?-?-?-?-?-?-?-?-?- Negative 134 30 -?-?-?-?-?-?-?-?-?-?-?-?- JV- no lof, vagi nal bleeding, or dec fm. no complaints. pyelectasis resolved. 07/26/21 -?-?-?-?-?-?-?-?-?-?-?-?- 32w 4d 131 lb (+23 lb) 100/72 -?-?-?-?-?-?-?-?-?-?-?-?- 135 32 -?-?-?-?-?-?-?-?-?-?-?-?- SM- no vb lof go od fm no reuglar ctx 08/08/21 -?-?-?-?-?-?-?-?-?-?-?-?- 34w 3d 134 lb 8 oz (+26 lb 8 oz) 130/80 Negative -?-?-?-?-?-?-?-?-?-?-?-?- Negative 130 34 -?-?-?-?-?-?-?-?-?-?-?-?- JV- bp slightly elevated, pt is asymptomatic. will bring back next week for close monitoring. pt to call or report to hospital if develops signs/symptoms of PRe-e 08/22/21 -?-?-?-?-?-?-?-?-?-?-?-?- 36w 3d 136 lb (+28 lb) 118/80 Negative -?-?-?-?-?-?-?-?-?-?-?-?- Negative 130 36 Cephalic 1 -?-?-?-?-?-?-?-?-?-?-?-?- 0 -4 SM- no vb lof good fm no regular ctx gbs done 08/29/21 -?-?-?-?-?-?-?-?-?-?-?-?- 37w 3d 137 lb (+29 lb) 118/74 Negative -?-?-?-?-?-?-?-?-?-?-?-?- Negative 130 38 Cephalic 2 -?-?-?-?-?-?-?-?-?-?-?-?- 40 -2 SM- us on thursday no vb lof good fm no regular ctx 09/05/21 -?-?-?-?-?-?-?-?-?-?-?-?- 38w 3d 134 lb 2 oz (+26 lb 2 oz) 126/60 Negative -?-?-?-?-?-?-?-?-?-?-?-?- Negative 131 37 Cephalic -?-?-?-?-?-?-?-?-?-?-?-?- JV- no lof ,vagi nal bleeding, or dec fm. labor precautions discussed. pt declined vag exam. 09/12/21 -?-?-?-?-?-?-?-?-?-?-?-?- 39w 3d 137 lb 6 oz (+29 lb 6 oz) 130/86 Negative -?-?-?-?-?-?-?-?-?-?-?-?- Negative 135 38 Cephalic 2 -?-?-?-?-?-?-?-?-?-?-?-?- 40 JV- no l of, vaginal bleeding, or dec fm. labor precautions discussed. plan IOL at 41 if no labor. 09/19/21 -?-?-?-?-?-?-?-?-?-?-?-?- 40w 3d 137 lb 3.2 oz (+29 lb 3.2 oz) 127/77 127/76 120/68 134/78 134/75 130/71 127/68 123/61 115/58 118/63 114/63 118/62 117/59 113/60 115/65 95/48 100/59 -?-?-?-?-?-?-?-?-?-?-?-?- -?-?-?-?-?-?-?-?-?-?-?--?- ROS Constitutional Constitutional: Denies change in weight, fatigue, fever(s), headache(s), poor appetite or weakness Eyes Eyes: Denies blurry vision, change in vision, seeing flashes or spots in vision ENT HEENT: Denies dizziness, headache(s), loss taste/smell or sore throat Cardiovascular Cardiovascular: Denies chest pain, dizziness, dyspnea, irregular heart rhythm, leg edema, palpitations, rapid heart rate or vomiting Respiratory/Chest Respiratory/Chest: Denies chest tightness, cough, dyspnea or breast pain Gastrointestinal Gastrointestinal: Denies abdominal pain, anorexia, constipation, cramping, diarrhea, hemorrhoids, vomiting or weight changes Genitourinary Genitourinary: Denies dysuria, flank pain, genital lesions, genital pain, urinary frequency or urinary urgency Musculoskeletal Musculoskeletal: Denies back pain, difficulty walking, joint pain, limited range of motion, muscle cramps or numbness Integumentary Integumentary: Denies lesions or unusual bruising Neurologic Neurologic: Denies abnormal movements, abnormal speech, dizziness, numbness, seizure-like activity or syncope Psychiatric Psychiatric: Denies anxiety, behavioral changes, change in appetite, change in libido, cognitive impairment, confusion, depression, difficulty concentrating, hallucinations or suicidal thoughts Endocrine Endocrinology: Denies excessive sweating, polydipsia or polyuria Hematologic/Lymphatic Hematologic/Lymphatic: Denies easy bleeding, easy bruising or lymphadenopathy Allergic/Immunologic Allergic/Immunologic: Denies itchy eyes, lip swelling, seasonal rhinorrhea, rhinitis, throat swelling, tongue swelling, eczemia, wheezing or asthma Vital Signs Vital Signs Vital Signs: 09/19/21 01:20 09/19/21 01:21 09/19/21 01:26 Temperature Temperature Source Pulse Rate 79 90 69 Blood Pressure 127/77 H BP Systolic 127 BP Diastolic 77 Pulse Ox 99 98 09/19/21 01:40 09/19/21 04:03 09/19/21 04:30 Temperature 98.0 F Temperature Source Temporal Pulse Rate 82 65 69 Blood Pressure 127/76 H BP Systolic 127 BP Diastolic 76 Pulse Ox 99 99 09/19/21 04:35 09/19/21 04:40 09/19/21 04:41 Temperature Temperature Source Pulse Rate 67 72 73 Blood Pressure 120/68 134/78 H BP Systolic 120 134 BP Diastolic 68 78 Pulse Ox 99 99 09/19/21 04:45 09/19/21 04:50 09/19/21 04:51 Temperature Temperature Source Pulse Rate 82 69 77 Blood Pressure 134/75 H 130/71 H BP Systolic 134 130 BP Diastolic 75 71 Pulse Ox 100 99 09/19/21 04:55 09/19/21 04:56 09/19/21 05:00 Temperature Temperature Source Pulse Rate 80 73 76 Blood Pressure 127/68 H 123/61 H BP Systolic 127 123 BP Diastolic 68 61 Pulse Ox 99 09/19/21 05:05 09/19/21 05:06 09/19/21 05:10 Temperature 98.6 F Temperature Source Temporal Pulse Rate 82 81 Blood Pressure 115/58 L 118/63 BP Systolic 115 118 BP Diastolic 58 63 Pulse Ox 97 09/19/21 05:11 09/19/21 05:15 09/19/21 05:16 Temperature Temperature Source Pulse Rate 85 81 75 Blood Pressure 114/63 BP Systolic 114 BP Diastolic 63 Pulse Ox 97 97 09/19/21 05:20 09/19/21 05:21 09/19/21 05:25 Temperature Temperature Source Pulse Rate 76 88 58 L Blood Pressure 118/62 117/59 L BP Systolic 118 117 BP Diastolic 62 59 Pulse Ox 97 98 09/19/21 05:45 09/19/21 06:36 09/19/21 06:37 Temperature 98.6 F Temperature Source Temporal Pulse Rate 78 66 Blood Pressure 113/60 115/65 BP Systolic 113 115 BP Diastolic 60 65 Pulse Ox 09/19/21 07:35 09/19/21 07:36 Temperature 99.5 F H Temperature Source Temporal Pulse Rate 68 Blood Pressure 100/59 L BP Systolic 100 BP Diastolic 59 Pulse Ox Weight Weight: 137 lb 3.2 oz Body Mass Index (BMI) 29.7 Physical Exam Const alert, oriented x3, no apparent distress and healthy appearing General Appearance: cooperative; Negative for anxious HEENT normocephalic Face and Sinus: normal facial exam Eyes EOMs intact bilaterally and no scleral icterus General Eye: normal appearance of both eyes Neck full ROM and supple Lymph Lymphatic: no lymphadenopathy noted Chest Chest: abnormal inspection of the chest Resp normal respiratory effort Effort and Inspection: able to speak in complete sentences Cardio regular rate GI soft to palpation and non-tender Inspection: gravid Palpation: soft; Negative for tender external exam normal Amniotic Fluid: other cx 5/80/-1 per nurse Back/Spine no CVA tenderness Extremity normal to inspection, full ROM and no clubbing, cyanosis or edema General Extremity: Negative for calf tenderness or edema Skin Lesions: no lesions Rashes: no rashes Psych mental status grossly normal Labs Labs Labs: Blood Type A POSITIVE Antibody Screen NEGATIVE Hct 34.7 % (37-47) L Hgb 11.8 g/dL (12.0-15.0) L Pap Smear Negative Obstetrics US Syphilis Total Ab Non-reactive Rubella IgG Antibody Reactive (Nonreactive) Hep Bs Antigen Non-Reactive (Nonreactive) Chlamydia DNA (GABRIELA) Negative (Negative) Neisseria gonorrhoeae DNA (GABRIELA) Negative (Negative) HIV 1&2 Antibody Non-Reactive (Nonreactive) Glucose 1 Hr 50 gm 101 mg/dL (70-140) Rhogam given: No Miscellaneous Test Assessment & Plan (1) : QUALIFIERS: Weeks of gestation: 39 weeks Qualified Code(s): Z3A.39 - 39 weeks gestation of COMMENT: declines carrier and afp. NIPT low risk. anatomy reviewed. GBS neg normal GCT (2) Supervision of other normal : COMMENT: PRR MASSIEL: 09/16/2021 Ty Leon PC: Charline Spouse: Paco (3) H/O oligohydramnios in prior , currently : COMMENT: plan US at 36 weeks, 5/2 growth nl (4) H/O gestational diabetes in prior , currently : COMMENT: nl 1 hour GCT at NOB PLAN: Patient presents IAL, plan expectant management for , pitocin now to augment labotr Pain management: plans epidural. GBS negative. Management of any complications: none I have reviewed the [facility] and made any clinically relevant updates.
[2021-09-19] MEDS: Lactated Ringers 1,000 ML 999 ML IV ×2 (09:54→12:04)
[2021-09-19] MEDS: Lactated Ringers 1,000 ML 200 ML IV (12:02)
[2021-09-19] MEDS: Oxytocin 30 units/NS 500 ml 30 UNITS/500 ML IV.SOLN 334 UNITS IV (13:10)
--- NOTE | 2021-09-19 14:05 | EX.PCM.OBRPT ---
Assessment & Plan (1) : QUALIFIERS: Weeks of gestation: 39 weeks Qualified Code(s): Z3A.39 - 39 weeks gestation of COMMENT: declines carrier and afp. NIPT low risk. anatomy reviewed. GBS neg normal GCT (2) Supervision of other normal : COMMENT: PRR MASSIEL: 09/16/2021 Ty Leon PC: Charline Spouse: Paco (3) H/O oligohydramnios in prior , currently : COMMENT: plan US at 36 weeks, 5/2 growth nl (4) H/O gestational diabetes in prior , currently : COMMENT: nl 1 hour GCT at NOB Maternal Data Information MASSIEL Calculator Estimated Delivery Date Method Current WG Current Estimate 09/16/21 LMP (Certain) 40w 3d Vaginal Delivery Maternal Presentation Maternal Presentation: Active Labor and Spontaneous Rupture of Membranes Operative Information Date of Procedure: 09/19/21 Pre-Operative Diagnosis: 40 weeks, spontaneous rupture of membranes Post-Operative Diagnosis: 40 weeks, spontaneous rupture of membranes Type of Anesthesia: Epidural Estimated Blood Loss: 50cc Findings Description of Procedure: Patient began pushing and delivered the head in the CLYDE presentation. The head was delivered atraumatically. The anterior and posterior shoulders delivered without complication followed by the rest of the and the was placed on the maternal abdomen. Delayed cord clamping was employed for approximately 60 seconds. Cord was clamped and cut and gentle traction was applied to the cord and the placenta delivered spontaneously immediately following it was noted to be intact with three-vessel cord. The perineum and vagina were inspected and noted to have no laceration. EBL was 50cc. Patient and infant tolerated delivery well. Amniotic Fluid Description: Clear Placental Delivery Description: Spontaneous Placenta Disposition: [facility] Cord Entanglement: None Infant A Gender: Male (1 minute): 8 (5 minute): 9 Delayed Cord Clamping: Yes Post Vaginal Delivery Medications Given After Delivery: IV Pitocin Episiotomy Description: None Laceration: None Complication Complications: None Multi Select Codes Urinary/Genital Urinary/Genital CPT Codes: 62618 Vaginal Delivery [facility]
[2021-09-19] MEDS: Ibuprofen 600 MG Tablet PO (22:34)
[2021-09-20 00:50] VITALS: BP 97/55; PULSE 65; RESP 16; TEMP 36.9; O2SAT 97
[2021-09-20 02:00] VITALS: BP 114/40; PULSE 66; RESP 16; TEMP 36.7; O2SAT 96
[2021-09-20 08:00] VITALS: BP 110/68; PULSE 62; RESP 16; TEMP 36.3; O2SAT 98
[2021-09-20] MEDS: Prenatal Vits Tablet 1 TABLET PO (08:00)
--- NOTE | 2021-09-20 08:22 | PN.OBGYN_ITS ---
Subjective Subjective Patient doing well without complaints. Tolerating PO. Ambulating and voiding without difficulty. Feeding well. Denies chest pain, shortness of breath, calf pain/swelling, fevers, chills, lightheadedness. Objective Data Objective Data Vital Signs: Vital Signs Temp Pulse Resp BP Pulse Ox 98.0 F 66 16 114/40 L 96 09/20/21 02:00 09/20/21 02:00 09/20/21 02:00 09/20/21 02:00 09/20/21 02:00 Oxygen Delivery Method Room Air Weight: 137 lb 3.2 oz Body Mass Index (BMI) 29.7 Intake & Output: Intake and Output for Last 24 Hours 09/18/21 09/19/21 09/20/21 23:59 23:59 23:59 Intake Total 4444.28 / 4444.28 Output Total 1450 / 1450 Balance 2994.28 / 2994.28 Lab / Micro Data Result Diagrams: 09/19/21 02:10 Micro: Microbiology 09/19/21 01:55 Nasal Secretion SARS-CoV-2 Antigen (Rapid) - Final ROS Constitutional Constitutional: Denies chills, fatigue, fever(s), poor appetite or weakness Eyes Eyes: Denies blurry vision, change in vision, seeing flashes or spots in vision ENT HEENT: Denies dizziness, headache(s), loss taste/smell or sore throat Cardiovascular Cardiovascular: Denies chest pain, dizziness, dyspnea, irregular heart rhythm, palpitations or rapid heart rate Respiratory/Chest Respiratory/Chest: Denies chest tightness, cough, dyspnea or breast pain Gastrointestinal Gastrointestinal: Denies abdominal pain, constipation or vomiting Genitourinary Genitourinary: Denies dysuria or flank pain Musculoskeletal Musculoskeletal: Denies difficulty walking, joint pain, limited range of motion or numbness Neurologic Neurologic: Denies abnormal movements, abnormal speech, dizziness, numbness, seizure-like activity or syncope Psychiatric Psychiatric: Denies anxiety, behavioral changes, change in appetite, confusion, depression or suicidal thoughts Physical Exam Const alert, oriented x3 and no apparent distress General Appearance: cooperative and comfortable Resp normal respiratory effort Cardio regular rate GI normal to inspection, nondistended, normoactive bowel sounds GI Narrative: uterus is firm below umbilicus Palpation: soft Back/Spine no CVA tenderness and thoraco-lumbar ROM normal Extremity normal to inspection, no clubbing, cyanosis or edema, no calf tenderness and no pedal edema Psych mental status grossly normal, thought process normal, cooperative, affect n ormal, speech normal, activity/motor behavior normal, denies homicidal ideation and denies suicidal ideation Assessment & Plan (1) Status post vaginal delivery: COMMENT: yodit RANGEL PLAN: s/p PPD # 1 1. routine post delivery care 2. breast feeding- support given 3. rh positive 4. rubella immune 5. plan for dc at 24 hours if ok with peds
--- NOTE | 2021-09-20 08:24 | PCM.DC ---
Discharge Instructions Diet Discharge Diet: No restrictions Activity Discharge Activity: Return to Normal Activity, May Not Drive (while taking narcotic pain medications.) and May Shower May resume sexual activity in: 4-6 weeks Dressing / Incision Call your doctor if your incision/area has: Continuous Slow Oozing, Sudden Increased Bleeding, Increased Pain/ Swelling, Increased Redness and Foul Smelling Discharge Follow Up Care Please Follow Up With: Marlen Camargo, When: Call [phone] to make an appointment with your doctor in 6 weeks. If you had elevated blood pressure or 4th degree laceration, you will need to be seen in 2 weeks. Test Results: Test results from this visit will be discussed in further detail at your follow-up appointment, if applicable. Discharge Plan Admission Admit Date/Time: 09/19/21 01:50 Primary Reason for Your Visit: vaginal delivery Attending Provider: Marlen Camargo Primary Care Provider: Danisha Martini Discharge Orders/Prescriptions Prescriptions: New ibuprofen 800 mg tablet 800 mg PO Q8H PRN (Reason: pain) 7 Days Qty: 30 RF: 0 Continued PNV-DHA 27 mg iron-1 mg -300 mg capsule 1 cap PO DAILY RF: 0 Referrals / Follow Up: Danisha Martini MD [Primary Care Provider] - Disposition Disposition (needs filled in before D/C Order can be placed): Home, Self Care
[2021-09-20 11:38] VITALS: BP 122/56; PULSE 56; RESP 18; TEMP 36.8; O2SAT 98
--- NOTE | 2021-09-24 15:28 | NURSING ---
Follow up phone call attempted, no answer. Left Voicemail.
== END 2021-09-20 14:30 | disposition home or self-care (01) | DRG 807 ==
LOC: WPOUT 01:52 → WP 01:52
PROVIDERS: Admitting Provider Obstetrics & Gynecology; PCP Family Medicine; Visit Provider Obstetrics & Gynecology
DX: O42.92 Full-term premature rupture of membranes, unspecified as to length of time between rupture and onset of labor (principal); Z37.0 Single live birth; Z3A.39 39 weeks gestation of pregnancy; Z87.59 Personal history of other complications of pregnancy, childbirth and the puerperium
CPT/HCPCS: 59025; 59050; 84112; 85025; 86850; 86900; 86901; 87426; 99218; J7120; G0378

== ENCOUNTER 2021-11-26 10:47 | Day surgery (SDC) | payer BC, SELFPAY ==
--- NOTE | 2021-11-26 09:31 | HP.PCM_ITS ---
History and Physical Date of Admission: 11/26/21 MR#: [id number] Acct: [id number] Name:CAESAR BUCHANAN Rep #: [id number] : 1990 ? ? Provider: Dr. Marlen Camargo, DO Age/Sex:? 31/F ? ? Location: [facility] [place] Status: Signed Intake Vital Signs ? 09/19/2200:28 11/01/2214:06 11/01/2214:10 Height 4 ft 9 in 4 ft 9 in 4 ft 9 in Weight: ? ? 119 lb BMI ? ? 25.7 BP ? ? 140/90 H Intake Visit Reasons:?6WK PP, DECLINED IUD Beeswax Bleacher Required: No Is patient in pain?: No Allergies No Known Allergies Allergy (Verified 11/01/21 15:04) Medications NK? 11/01/21 [History Confirmed 11/01/21] : Yes PFSH Medical History? COVID-19 vaccine series completed Gestational diabetes Surgical History? History of wisdom tooth extraction, class II edentulism Family History? Unknown Heart diseaseGrandfather Cancer ?? ? lung Social History? Smoking Status:? Never smoker alcohol intake:? never substance use type:? does not use caffeine:? Yes what type of physical activity do you participate in:? walking seatbelt use:? always do you feel safe at home:? Yes additional social history:? 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 ? ? 2 ? Elective abortions ? Hx Para ? ? ? 2 ? Spontaneous abortions ? Hx # Term Pregnancies ?D Ectopic pregnancies ? Hx # Pregnancies ? Multiple births ? # of living children ? ? ? 2 Past Pregnancies Del. Date Name GA/Weeks Outcome Route Bth Weight Infant Gen Labor Lgth Anesthesia Del Locatn Provider FOB 09/17/19 Charline 38 live - full term 5lbs Fema le ? epidural [facility] TRAM ? 09/19/21 Edward 40 live - full term 7lbs 3oz Male ? epidural [facility] Mralen Andrews Delivery Date: 09/17/19? Last Updated by: Renu Webber ? ? ? IoL oligo, GDMA1, 1st degree laceration Delivery Date: 09/19/21? Last Updated by: Kelli Thomas ? ? ? see problem list for complications Depression Screen PHQ-2/9 PHQ-2 Over the last 2 weeks, how often have you been bothered by any of the following problems? 1. Little interest or pleasure in doing things: not at all 2. Feeling down, depressed, or hopeless: not at all Total score: 0 Post HPI 6WK PP, DECLINED IUD : Details: CAESAR FERRER is a 31 year old who presents for her post visit. Infant Feeding: Breast Menses resumed: No Tripp since delivery: No Emotional Support: Yes Last Pap:: 02/07/2021 ROS Const Reports system reviewed and no additional complaints, except as documented GI Reports system reviewed and no additional complaints, except as documented, Denies bloating, Denies constipation, Denies nausea and Denies vomiting Reports system reviewed and no additional complaints, except as documented, Denies abnormal vaginal bleeding, Denies pelvic pain, Denies sexual dysfunction, Denies urinary incontinence, Denies urinary hesitancy, Denies urinary urgency and Denies vaginal discharge Skin/Breast Reports system reviewed and no additional complaints, except as documented and Reports as per HPI Psych Reports as per HPI Exam Const General: cooperative, healthy appearing, comfortable and no acute distress HENKS Head: normal to inspection Neck Neck: normal visual inspection and no lymphadenopathy Thyroid: thyroid normal Chest Breast inspection: normal inspection of the breasts and normal inspection of the axillae Breast palpation: normal palpation of the breasts and normal palpation of the axillae Resp Effort & Inspection: normal respiratory effort GI Inspection: normal to inspection Palpation: soft, no hepatosplenomegaly and nontender General: bladder normal to palpation External Female Exam: normal external appearance and normal appearance of the urethra Urethra: normal appearance of the urethra Speculum Exam - Vagina: normal appearance of the vagina and normal vaginal discharge Speculum Exam - Cervix: normal appearance of the cervix Bimanual Exam- Vagina & Uterus: normal bimanual exam, uterine size normal, bladder normal to palpation, uterine shape normal and non-tender Bimanual Exam- Adnexa, other: normal adnexae and normal Pelvic Support: normal Skin General: no rashes or lesions noted Coding Level of Care Code Off vis,est,level 4 Diagnoses Status post vaginal delivery? Contraceptive management? Z30.9 Assessment and Plan Assessment and Plan (1) Status post vaginal delivery: ?Status:?Acute ?Comment: yodit feliz Edward RANGEL (2) Contraceptive management: ?Status:?Acute Plan Cervical cancer screening: up to date Contraceptive plans: tubal ligation Complications: none Follow up for annual exams or sooner if indicated. son being treated for hip dysplasia. After discussing the patient's diagnosis and treatment plan options, patient wishes to proceed with surgical management.? I have discussed with the patient the risks, benefits, and alternatives of the procedure which include but are not limited to risks of anesthesia, bleeding, infection, possible damage to bowel, bladder, or surrounding vasculature which could lead to additional surgery to evaluate any complications.? Patient agrees to procedure and wishes to proceed.? ACOG/uptodate references given for additional information regarding procedure.? plan for laparoscopic? bilateral salpingectomy next available OR day UPDATE- I have seen the patient and performed any clinically relevant updates to the history and physical exam. Marlen Camargo, DO
[2021-11-26 11:20] VITALS: BP 118/75; PULSE 72; RESP 16; TEMP 36.8; O2SAT 99; BMI 24.8
[2021-11-26] MEDS: Lactated Ringers 1,000 ML 125 ML IV (11:20)
--- NOTE | 2021-11-26 11:24 | DCINST_ITS ---
Discharge Instructions Diet Discharge Diet: No restrictions Activity Discharge Activity: Return to Normal Activity, May Not Drive (for two weeks or while taking narcotic pain medications.), May Shower and May Take a Tub Bath (in 7 days) May resume sexual activity in: 1 week Weight Bearing Status: Full weight bearing Dressing / Incision Call your doctor if you observe: Using more than 1 pad per hour, Shortness of breath, Chest pain and Uncontrolled pain Suture Line Care: Avoid Pulling/Pushing and Avoid Pinching/Bending Remove Dressing in: 1 week (if present) Cleanse incision/area with: Soap & Water and Keep Dressing Clean & Dry Follow Up Care Please Follow Up With: Marlen Camargo DO When: Call to make an appointment with your doctor for a follow up incision check in 1-2 weeks. Test Results: Test results from this visit will be discussed in further detail at your follow- up appointment, if applicable. Discharge Plan Admission Primary Reason for Your Visit: laparoscopic removal of fallopian tubes Attending Provider: Marlen Camargo Primary Care Provider: Danisha Martini Discharge Orders/Prescriptions Prescriptions: New oxycodone-acetaminophen [Percocet] 5-325 mg tablet 1 tab PO Q6H PRN (Reason: pain) 3 Days Qty: 10 0RF Referrals / Follow Up: Danisha Martini MD [Primary Care Provider] - Disposition Disposition (needs filled in before D/C Order can be placed): Home, Self Care
[2021-11-26 11:25] LABS: Hemoglobin 13.1 g/dL (12.0-15.0); Mean Corp Hgb Conc 32.8 g/dL (32-36); Mean Corpuscular Hgb 27.6 pg (27.0-32.0); Mean Corpuscular Volume 84.4 fL (81-99); Mean Platelet Vol. 10.6 fl (6.2-12.0); Platelet Count 222 K/mm3 (150-450); RBC Distribution Width CV 12.7 % (11.6-14.6); Red Blood Count 4.74 M/mm3 (4.2-5.4); White Blood Count 3.9 K/mm3 (4.4-11.0)
[2021-11-26 11:30] LABS: Internal QC Validated? YES +Cl - CLEAR BKGD; Pregnancy, Urine Negative Negative
--- NOTE | 2021-11-26 12:30 | FALS_PTH ---
PATIENT: CAESAR FERRER LOC: [facility] [place] U#:[id number] AGE/SX: 31/F ROOM: RE11/26/[address]: Dr. Marlen Camargo DO : 1990 BED: DIS: 11/26/2021 SPEC #: [id number] RECD: 11/26/21 15:52 STATUS: EDUARDA GREENWOOD #: [id number] JL: 11/26/21 12:[address]: Marlen Camargo DEPT: SURGICAL PATHOLOGY RECD BY: Georgia Sheikh ENTERED: 11/27/21 09:27 SP TYPE: FALL TUBES OTHR DR: Dr. Danisha Martini MD Tissues: Fallopian tube Procedures: Surgery Specimen Level II HEADER OPERATION: Laparoscopic bilateral salpingectomy PRE-OP DIAGNOSIS: Contraceptive management TISSUE SUBMITTED: Bilateral fallopian tubes MICROSCOPIC DIAGNOSIS Bilateral fallopian tubes, salpingectomy: Bilateral fallopian tubes, no pathologic diagnosis. SJ:malick 11/28/2021 MICROSCOPIC DESCRIPTION Slides are reviewed. GROSS DESCRIPTION Received in fixative is one container labeled with the patient's name and designated bilateral fallopian tubes. The specimen consists of bilateral fallopian tubes measuring 4 cm in length and 0.5 cm in diameter and 4.5 cm in length and 0.5 cm in diameter. The fallopian tubes are not identified as right or left. One of the fallopian tubes does not show distinct femoral end. Sections reveal unremarkable cut surfaces. Claims Customer Service Representative sections are submitted in two cassettes as follows: 1 - one fallopian tube with fimbrial end, 2 - second fallopian tube without distinct fimbrial end. / [place] 11/27/2021 TC:4 CPT: 97169 x2
[2021-11-26] MEDS: Bupivacaine 0.25% 30 ML Vial (13:33)
--- NOTE | 2021-11-26 13:41 | OP.PCM_ITS ---
Problems Associated Problem List Diagnoses (1) Contraceptive management: Operative Report Date of Procedure: 11/26/21 Pre-operative diagnosis : desires permanent sterilization Post-operative diagnosis: desires permanent sterilization surgery: laparoscopic bilateral salpingectomy surgeon: Dr. Marlen Camargo Do Communication Center Coordinator: YARELI Bill 30cc complications: none IV fluids: 1 liter crystalloid Patient was taken in the operating room and was placed under general anesthesia was prepped and draped in normal sterile fashion in the dorsal lithotomy position. Bladder was drained of clear urine and SCDs were on preoperatively. Uterus was sounded and a uterine manipulator was placed after dilating. Attention was then paid to the abdominal portion of the procedure and the umbilicus was elevated with towel clamps and injected with Marcaine and after a 5 mm incision was made and a 5 mm trocar was inserted into the abdomen under direct visualization of the laparoscope. The abdomen was insufflated with CO2 gas and a 5 mm optical trocar was placed under direct visualization. A left lower quadrant 5 mm port and a 5 mm port suprapubically were placed under direct visualization. Uterus was well visualized and bilateral fallopian tubes identified and bilateral tubes were elevated and transecting across the mesosalpinx and the attachment to the uterine corpus bilaterally the tubes were removed without complication using the Enseal device. Excellent hemostasis was noted. Fallopian tubes were removed through the lower port sites without complication. Liver and upper abdomen were visualized notably within normal limits and no other gross abnormalities were seen in the abdomen. All instruments removed from the abdomen after gas was desufflated. Port sites were closed with 3-0 Monocryl Steri's and op sites were applied. All instruments removed from the vagina and patient was awoken and taken recovery in stable condition. Multi Select Codes Urinary/Genital Urinary/Genital CPT Codes: 97663 Laproscopic BS/O
[2021-11-26 13:52] VITALS: BP 113/66; BP 118/75; PULSE 62; RESP 16; TEMP 36.8; O2SAT 99
[2021-11-26 14:00] VITALS: BP 108/64; BP 118/75; PULSE 60; RESP 18; O2SAT 98
[2021-11-26 14:15] VITALS: BP 111/65; BP 118/75; PULSE 52; RESP 18; O2SAT 98
[2021-11-26 14:31] VITALS: BP 117/41; BP 118/75; PULSE 60; RESP 18; TEMP 35.9; O2SAT 100
[2021-11-26 15:11] VITALS: BP 112/60; BP 118/75; PULSE 80; RESP 16; O2SAT 98
== END 2021-11-26 15:20 | disposition home or self-care (01) ==
LOC: SDC 10:50 → AC 10:50
PROVIDERS: Anesthesiology; PCP Family Medicine; Referring Provider Obstetrics & Gynecology; Visit Provider Obstetrics & Gynecology
PROC: (CPT 58661; principal; 2021-11-26 12:15)
DX: Z30.2 Encounter for sterilization (principal)
CPT/HCPCS: 58661; 00840; 81025; 85027; 86850; 86900; 86901; 88302; J7120; C1760; J2405